=== PATIENT | female | born 1970 | race Caucasian/White ===

== ENCOUNTER → 2017-11-22 | Outpatient (CLI) | payer OTHER ==
--- NOTE | 2017-11-22 12:53 | RADIOLOGY REPORT (SQ) ---
EXAM DESCRIPTION: FOOT LEFT COMPLETE COMPLETED DATE/TIME: 11/22/2017 11:39 am REASON FOR STUDY: LEFT FOOT PAIN COMPARISON: None. NUMBER OF VIEWS: Three views of the left foot. LIMITATIONS: None. FINDINGS: There is no acute or significant bone, joint or soft tissue abnormality. OTHER: No other significant finding. IMPRESSION: NORMAL STUDY. TECHNICAL DOCUMENTATION: JOB ID: [id number] Reading location - IP/workstation name: [email or web address]
== END ==
LOC: OD 10:58
PROVIDERS: ATTEND Student in an Organized Health Care Education/Training Program
DX: M79.672 Pain in left foot (principal)

== ENCOUNTER → 2019-07-12 | Outpatient (CLI) | payer BC, OTHER ==
[2019-07-12 09:22] LABS: ABSOLUTE EOSINOPHILS # (AUTO) 0.1 10^3/uL (0.0-0.6); ABSOLUTE LYMPHOCYTES (AUTO) 1.9 10^3/uL (0.5-4.7); ABSOLUTE MONOCYTES (AUTO) 0.5 10^3/uL (0.1-1.4); ABSOLUTE NEUT (AUTO) 3.9 10^3/uL (1.7-8.2); BASOPHILS % (AUTO) 0.7 % (0-2); EOSINOPHILS % (AUTO) 1.8 % (0-6); HEMATOCRIT 41.7 % (36.0-47.0); HEMOGLOBIN 14.3 g/dL (12.0-15.5); LYMPHOCYTES % (AUTO) 29.7 % (13-45); MEAN CORPUSCULAR HEMOGLOBIN 31.3 pg (27.0-33.4); MEAN CORPUSCULAR HGB CONC 34.1 g/dL (32.0-36.0); MEAN CORPUSCULAR VOLUME 92 fl (80-97); MONOCYTES % (AUTO) 7.7 % (3-13); PLATELET COUNT 253 10^3/uL (150-450); RED BLOOD COUNT 4.55 10^6/uL (3.72-5.28); SEGMENTED NEUTROPHILS % (AUTO) 60.1 % (42-78); TOTAL CELLS COUNTED % (AUTO) 100 %; WHITE BLOOD COUNT 6.5 10^3/uL (4.0-10.5)
[2019-07-12 09:23] LABS: ALBUMIN 4.1 g/dL (3.5-5.0); ALKALINE PHOSPHATASE 47 U/L (38-126); AMYLASE 51 U/L (30-110); ANION GAP 8 (5-19); ASPARTATE AMINO TRANSFERASE 21 U/L (14-36); BILIRUBIN,TOTAL 0.2 mg/dL (0.2-1.3); BLOOD UREA NITROGEN 18 mg/dL (7-20); CALCIUM 9.2 mg/dL (8.4-10.2); CARBON DIOXIDE 30 mmol/L (22-30); CHLORIDE 101 mmol/L (98-107); CHOLESTEROL 189.66 mg/dL (0-200); GLUCOSE 91 mg/dL (75-110); POTASSIUM 4.5 mmol/L (3.6-5.0); TOTAL PROTEIN 7.4 g/dL (6.3-8.2); TRIGLYCERIDES 184 mg/dL (<150)
[2019-07-12 09:35] LABS: DIRECT LDL 128 mg/dL (<100)
[2019-07-12 09:37] LABS: VLDL CHOLESTEROL 36.8 mg/dL (10-31)
--- NOTE | 2019-07-12 12:18 | RADIOLOGY REPORT (SQ) ---
EXAM DESCRIPTION: U/S ABDOMEN LIMITED W/O DOP COMPLETED DATE/TIME: 07/12/2019 8:41 am REASON FOR STUDY: UNSPEC ABD PAIN (R10.9) R10.9 UNSPECIFIED ABDOMINAL PAIN COMPARISON: None. TECHNIQUE: Dynamic and static grayscale images acquired of the abdomen and recorded on PACS. Additio nal selected color Doppler and spectral images recorded. LIMITATIONS: None. FINDINGS: PANCREAS: No masses. Visualized pancreatic duct normal caliber. LIVER: Increased echogenicity. No masses. LIVER VASCULATURE: Normal directional flow of the main portal vein and hepatic veins. GALLBLADDER: Distended. No stones. No wall thickening or pericholecystic fluid. ULTRASOUND-DETECTED PATEL'S SIGN: Negative. INTRAHEPATIC DUCTS AND COMMON DUCT: CBD and intrahepatic ducts normal caliber. No filling defects. INFERIOR VENA CAVA: Not imaged. AORTA: No aneurysm. RIGHT KIDNEY: Normal size common 10.7 cm. Normal echogenicity. No solid or suspicious masses. No hyd ronephrosis. No calcifications. PERITONEAL AND RIGHT PLEURAL SPACE: No ascites or effusions. OTHER: No other significant findings. IMPRESSION: Hepatic steatosis. Distended gallbladder with no stones. TECHNICAL DOCUMENTATION: JOB ID: [id number] [employer] All Rights Reserved Reading location - IP/workstation name: [email or web address]
== END ==
LOC: RAD 07:45
PROVIDERS: ATTEND Family Medicine Geriatric Medicine
DX: I10 Essential (primary) hypertension (principal); R10.9 Unspecified abdominal pain; J30.9 Allergic rhinitis, unspecified; Z79.899 Other long term (current) drug therapy
CPT/HCPCS: 36415; 76705; 80053; 80061; 82150; 83690; 84443; 85025

== ENCOUNTER → 2019-08-19 | Outpatient (CLI) | payer OTHER ==
--- NOTE | 2019-08-19 16:22 | XCELERA REPORT ---
[address] [place] [facility] [place] [address] Lower Extremity Venous Evaluation Procedure: Color flow and duplex imaging of the veins of the left lower extremity as well as the right Common Femoral vein. Right Sided Venous Evaluation The right common femoral vein is fully compressible. Spontaneous and phasic flow is present in the right common femoral vein. Left Sided Venous Evaluation Normal vessel filling wall to wall, compression and augmentation as well as Colour flow down to the infrageniculate veins. Interpretation Summary No duplex evidence of DVT or obstruction in the left lower extremity nor in the right Common Femoral vein. Name: GONZALEZ IRVIN Age: 48 yrs Gender: Female : 1970 Patient Status: Outpatient Patient Location: Study Date: 08/19/2019 01:10 PM Reason For Study: LLE PAIN Ordering Physician: BRENDA DIAZ Performed By: Mitiz Jenkins : BRENDA DIAZ > Vasile Franco
== END ==
LOC: SP 12:00
PROVIDERS: ATTEND Family Medicine Geriatric Medicine
DX: M79.605 Pain in left leg (principal)
CPT/HCPCS: 93971

== ENCOUNTER 2019-12-02 11:29 | Emergency (ER) | payer OTHER ==
[2019-12-02] MEDS ORDERED: NORMAL SALINE 1000 ML 1,000 ML IV ONE (12:04)
--- NOTE | 2019-12-02 12:05 | ER Document Report ---
ED Medical Screen (RME) - General Chief Complaint: Possible Kidney Stone Stated Complaint: ABDOMINAL PAIN Time Seen by Provider: 12/02/19 12:03 Primary Care Provider: BRENDA DIAZ MD [Primary Care Provider] - Follow up as needed Mode of Arrival: Ambulatory Information source: Patient Notes: 89-year-old female presented to ED for complaint of left flank pain that started yesterday and is wrapped around to the left upper abdomen at this time. She states she has not noticed any blood in the urine. She states the abdominal pain started about 10 AM. She is alert oriented respirations regular nonlabored speaking in full sentences. She states she does not have any history of kidney stones that she knows of. She states she has had a uterine ablation. She is a former smoker does not use any alcohol or drugs. I have greeted and performed a rapid initial assessment of this patient. A comprehensive ED assessment and evaluation of the patient, analysis of test results and completion of medical decision making process will be conducted by an additional ED providers. TRAVEL OUTSIDE OF THE [place] IN LAST 30 DAYS: No - Related Data Allergies/Adverse Reactions: Penicillins Allergy (Intermediate, Verified 08/18/12 07:54) Generalized rash Past Medical History - Past Medical History Cardiac Medical History: Reports: Hx Hypercholesterolemia, Hx Hypertension Pulmonary Medical History: Reports: Hx Asthma, Hx Bronchitis - Last 10 yrs ago, Hx Sleep Apnea Denies: Hx Tuberculosis GI Medical History: Reports: Hx Gastroesophageal Reflux Disease Psychiatric Medical History: Reports: Hx Bipolar Disorder, Hx Depression Past Surgical History: Reports: Hx Section. Denies: Hx Pacemaker Physical Exam - Vital signs Vitals: Temp Pulse Resp BP Pulse Ox 99.2 F 84 19 130/68 H 99 12/02/19 11:34 12/02/19 11:34 12/02/19 11:34 12/02/19 11:34 12/02/19 11:34 Course - Vital Signs Vital signs: Temp Pulse Resp BP Pulse Ox 97.7 F 84 19 130/68 H 99 12/02/19 11:57 12/02/19 11:34 12/02/19 11:34 12/02/19 11:34 12/02/19 11:34 Doctor's Discharge - Discharge Referrals: BRENDA DIAZ MD [Primary Care Provider] - Follow up as needed
--- NOTE | 2019-12-02 12:37 | RADIOLOGY REPORT (SQ) ---
EXAM DESCRIPTION: CT ABD/PELVIS NO ORAL OR IV IMAGES COMPLETED DATE/TIME: 12/02/2019 12:18 pm REASON FOR STUDY: Left flank pain COMPARISON: Right upper quadrant ultrasound 07/12/2019 TECHNIQUE: CT scan of the abdomen and pelvis performed without intravenous or oral contrast. Images reviewed with lung, soft tissue, and bone windows. Reconstructed coronal and sagittal MPR images revi ewed. All images stored on PACS. All CT scanners at this facility use dose modulation, iterative reconstruction, and/or weight based d osing when appropriate to reduce radiation dose to as low as reasonably achievable (ALARA). [facility]: Dose Right [facility]: CareDose [facility]: Dose Right [facility]: Teradose 4D [facility]: Smart [employer] RADIATION DOSE: CT Rad equipment meets quality standard of care and radiation dose reduction techniq ues were employed. CTDIvol: 18.6 mGy. DLP: 1159 mGy-cm.mGy. LIMITATIONS: None. FINDINGS: LOWER CHEST: No significant findings. No nodules or infiltrates. NON-CONTRASTED LIVER, SPLEEN, ADRENALS: Evaluation limited by lack of IV contrast. No identified sign ificant masses. PANCREAS: No masses. No peripancreatic inflammatory changes. GALLBLADDER: No identified stones by CT criteria. No inflammatory changes to suggest cholecystitis. RIGHT KIDNEY AND URETER: No suspicious masses. Assessment limited by lack of IV contrast. No signif icant calcifications. No hydronephrosis or hydroureter. LEFT KIDNEY AND URETER: No suspicious masses. Assessment limited by lack of IV contrast. No signifi cant calcifications. No hydronephrosis or hydroureter. AORTA AND RETROPERITONEUM: No aneurysm. No retroperitoneal masses or adenopathy. BOWEL AND PERITONEAL CAVITY: No obvious masses or inflammatory changes. No free fluid. APPENDIX: Normal. PELVIS, BLADDER, AND ABDOMINAL WALL:No abnormal masses. No free fluid. Bladder normal. Normal size f emale pelvic organs BONES: No significant findings. OTHER: No other significant finding. IMPRESSION: NO SIGNIFICANT OR ACUTE PROCESS IN THE ABDOMEN OR PELVIS. COMMENT: Quality ID # [id number]: Final reports with documentation of one or more dose reduction techniques (e.g., Automated exposure control, adjustment of the mA and/or kV according to patient size, use of iterative reconstruction technique) TECHNICAL DOCUMENTATION: JOB ID: [id number] 2010 [employer]- All Rights Reserved Reading location - IP/workstation name: [email or web address]
[2019-12-02 12:46] LABS: ABSOLUTE BASOPHILS # (AUTO) 0.1 10^3/uL (0.0-0.2); ABSOLUTE EOSINOPHILS # (AUTO) 0.1 10^3/uL (0.0-0.6); ABSOLUTE LYMPHOCYTES (AUTO) 2.2 10^3/uL (0.5-4.7); ABSOLUTE MONOCYTES (AUTO) 0.6 10^3/uL (0.1-1.4); ABSOLUTE NEUT (AUTO) 4.5 10^3/uL (1.7-8.2); BASOPHILS % (AUTO) 0.8 % (0-2); EOSINOPHILS % (AUTO) 1.7 % (0-6); HEMATOCRIT 44.1 % (36.0-47.0); HEMOGLOBIN 15.1 g/dL (12.0-15.5); MEAN CORPUSCULAR HEMOGLOBIN 31.4 pg (27.0-33.4); MEAN CORPUSCULAR HGB CONC 34.2 g/dL (32.0-36.0); MEAN CORPUSCULAR VOLUME 92 fl (80-97); MONOCYTES % (AUTO) 8.3 % (3-13); PLATELET COUNT 315 10^3/uL (150-450); RED CELL DISTRIBUTION WIDTH 13.2 % (11.5-14.0); SEGMENTED NEUTROPHILS % (AUTO) 60.2 % (42-78); TOTAL CELLS COUNTED % (AUTO) 100 %; WHITE BLOOD COUNT 7.5 10^3/uL (4.0-10.5)
[2019-12-02 12:56] LABS: APPEARANCE,URINE CLEAR; BILIRUBIN,URINE NEGATIVE (NEGATIVE); COLOR,URINE YELLOW; GLUCOSE, URINE NEGATIVE (NEGATIVE); KETONES,URINE NEGATIVE (NEGATIVE); LEUKOCYTE ESTERASE,URINE TRACE (NEGATIVE); NITRITE,URINE NEGATIVE (NEGATIVE); PROTEIN,URINE NEGATIVE (NEGATIVE); URINE SPECIFIC GRAVITY 1.008; UROBILINOGEN,URINE NEGATIVE mg/dL (<2.0)
[2019-12-02 13:00] LABS: ALBUMIN 4.2 g/dL (3.5-5.0); ALKALINE PHOSPHATASE 52 U/L (38-126); ANION GAP 8 (5-19); ASPARTATE AMINO TRANSFERASE 22 U/L (14-36); BILIRUBIN,TOTAL 0.3 mg/dL (0.2-1.3); BLOOD UREA NITROGEN 14 mg/dL (7-20); CALCIUM 9.7 mg/dL (8.4-10.2); CARBON DIOXIDE 29 mmol/L (22-30); CHLORIDE 99 mmol/L (98-107); GLUCOSE 91 mg/dL (75-110); POTASSIUM 4.1 mmol/L (3.6-5.0); TOTAL PROTEIN 7.7 g/dL (6.3-8.2)
[2019-12-02 14:17] VITALS: BP 130/80
--- NOTE | 2019-12-02 19:08 | ER Document Report ---
Entered by KAMILAH MORTON SCRIBE 12/02/19 [id number] Acting as scribe for:RICARDO WILSON MD ED General - General Chief Complaint: Possible Kidney Stone Stated Complaint: ABDOMINAL PAIN Time Seen by Provider: 12/02/19 12:03 Primary Care Provider: BRENDA DIAZ MD [Primary Care Provider] - Follow up as needed Mode of Arrival: Ambulatory Information source: Patient Notes: This 49 year old female patient presents to the emergency department today with complaints of left side flank/abdominal pain for the last two days. Patient states that two days ago she she was only having back pain and she did not think much of it. Patient reports that yesterday she also began having some left sided abdominal pain too which is why she decided to come be seen. Patient reports that she went to [facility] urgent care first but states that they told her to come tot he ED. TRAVEL OUTSIDE OF THE [place] IN LAST 30 DAYS: No - Related Data Allergies/Adverse Reactions: Penicillins Allergy (Intermediate, Verified 12/02/19 12:35) Generalized rash Sulfa (Sulfonamide Antibiotics) Allergy (Intermediate, Verified 12/02/19 12:36) Generalized Itching Past Medical History - General Information source: Patient - Social History Smoking Status: Former Smoker Cigarette use (# per day): No Frequency of alcohol use: None Drug Abuse: None Lives with: Family Family History: Reviewed & Not Pertinent Patient has homicidal ideation: No - Past Medical History Cardiac Medical History: Reports: Hx Hypercholesterolemia, Hx Hypertension Pulmonary Medical History: Reports: Hx Asthma, Hx Bronchitis - Last 10 yrs ago, Hx Sleep Apnea GI Medical History: Reports: Hx Gastroesophageal Reflux Disease Psychiatric Medical History: Reports: Hx Bipolar Disorder, Hx Depression Past Surgical History: Reports: Hx Section Review of Systems - Review of Systems Constitutional: No symptoms reported EENT: No symptoms reported Cardiovascular: No symptoms reported Respiratory: No symptoms reported Gastrointestinal: See HPI, Abdominal pain Genitourinary: See HPI, Flank pain Female Genitourinary: No symptoms reported Musculoskeletal: No symptoms reported Skin: No symptoms reported Hematologic/Lymphatic: No symptoms reported Neurological/Psychological: No symptoms reported -: Yes All other systems reviewed and negative Physical Exam - Vital signs Vitals: Temp Pulse Resp BP Pulse Ox 99.2 F 84 19 130/68 H 99 12/02/19 11:34 12/02/19 11:34 12/02/19 11:34 12/02/19 11:34 12/02/19 11:34 - Notes Notes: Physical Exam: General: Alert, appears well. Complains of increased pain when laughing. HEENT: Normocephalic. Atraumatic. PERRL. Extraocular movements intact. Oropharynx clear. Neck: Supple. Non-tender. Respiratory: No respiratory distress. Clear and equal breath sounds bilaterally. Cardiovascular: Regular rate and rhythm. Abdominal: Normal Inspection. Non-tender. No distension. Normal Bowel Sounds. Back: Tenderness with palpation over the left paravetebral muscles wrapping around just inferior to the lateral rib margin. This area is more tender if the patient flexes abdominal muscles. Extremities: Moves all four extremities. Upper extremities: Normal inspection. Normal ROM. Lower extremities: Normal inspection. No edema. Normal ROM. Neurological: Normal cognition. AAOx4. Normal speech. Psychological: Normal affect. Normal Mood. Skin: Warm. Dry. Normal color. Course - Re-evaluation Re-evalutation: 12/02/19 13:40 CBC, Chem-12, urinalysis, and noncontrast CT scan abdomen pelvis are all unremarkable. - Vital Signs Vital signs: Temp Pulse Resp BP Pulse Ox 97.7 F 78 18 130/80 H 99 12/02/19 12:05 12/02/19 14:15 12/02/19 14:15 12/02/19 14:15 12/02/19 14:15 - Laboratory Result Diagrams: 12/02/19 12:29 12/02/19 12:29 Laboratory results interpreted by me: 12/02/19 12/02/19 12:14 12:29 Sodium 136.4 L Ur Leukocyte Esterase TRACE H - Diagnostic Test Radiology reviewed: Image reviewed, Reports reviewed - CT scan of the abdomen and pelvis without contrast is unremarkable. Discharge - Discharge Clinical Impression: Acute left flank pain Condition: Stable Disposition: HOME, SELF-CARE Additional Instructions: Flank Pain We weren't able to prove an exact cause for your flank pain. Pain in the flank can be caused by a muscle strain or spasm. Sometimes a kidney stone causes pain, but can't be found on our tests. Infection in the kidney should be evident on a urine test. Early shingles can occasionally cause flank pain, without the rash that proves the diagnosis. On rare occasions, disease of the pancreas, aorta, spleen, or colon can create pain in the flank. At this time, there's no evidence of a dangerous condition, and it seems safe for you to be at home. If the pain goes away and does not come back, no further testing will be needed. If pain persists, or becomes more severe, we may need to repeat some tests or order additional new testing. Blood in the urine, urgency to urinate frequently, and pain that radiates to the groin can indicate a kidney stone. Fever may mean that the pain is due to infection, either of the kidney or the colon (diverticulitis). If your pain is early shingles, you should develop an eruption of blisters in the painful area within a few days. Call the doctor or return if you have pain that is spreading or becoming more severe, pain that does not resolve with time, fever, or any other new symptoms. The CT scan of your abdomen pelvis did not show any abnormalities. The CBC did not show an elevation white blood cell count to suggest an infectious process. The serum chemistries were normal. The urinalysis did not show blood or signs of infection in the urine. Physical exam does suggest that the pain is coming from the muscles in your left flank wrapping around to the left upper quadrant of your abdomen. Take the muscle relaxer as prescribed. Take Tylenol and ibuprofen for pain as needed. Try to avoid activities that make the pain worse. Follow-up with your primary care provider if not improving. RETURN TO THE EMERGENCY ROOM IF ANY NEW OR WORSENING SYMPTOMS. Prescriptions: Cyclobenzaprine HCl 5 mg PO Q8 PRN #15 tablet PRN Reason: Forms: Return to Work Referrals: BRENDA DIAZ MD [Primary Care Provider] - Follow up as needed I personally performed the services described in the documentation, reviewed and edited the documentation which was dictated to the scribe in my presence, and it accurately records my words and actions.
== END 2019-12-02 14:17 | disposition home or self-care (01) ==
LOC: ER 11:29
DX: R10.9 Unspecified abdominal pain (principal); M54.9 Dorsalgia, unspecified; Z88.0 Allergy status to penicillin; Z88.2 Allergy status to sulfonamides; Z87.891 Personal history of nicotine dependence; I10 Essential (primary) hypertension; J45.909 Unspecified asthma, uncomplicated
CPT/HCPCS: 99284; 96360; 36415; 87086; 85025; 80053; 81001; 74176; J7030

== ENCOUNTER 2020-02-17 11:51 | Emergency (ER) | payer OTHER ==
[2020-02-17] MEDS ORDERED: ONDANSETRON HCL INJ/PF 4 MG/2 ML SDV IV ONE (12:05)
--- NOTE | 2020-02-17 12:07 | ER Document Report ---
ED Medical Screen (RME) - General Chief Complaint: Abdominal Pain Stated Complaint: ABDOMINAL PAIN Time Seen by Provider: 02/17/20 12:02 Primary Care Provider: BRENDA DIAZ MD [Primary Care Provider] - Follow up as needed Mode of Arrival: Wheelchair Information source: Patient Notes: Patient presents complaining of abdominal pain that started this morning. Patie nt states initially she had right lower quadrant pain although now the right lower quadrant pain has resolved and she complains of left upper quadrant tenderness. Patient reports diarrhea over the weekend that has since resolved. Patient reports nausea vomiting x3 episodes today. Patient denies any fever or urinary symptoms. Patient denies any vaginal bleeding or discharge. Patient has a history of hypertension. Patient states she has a history of abdominal pain in the past that she had been evaluated for and referred to a medical center representative, patient was advised that she needed a colonoscopy although she could not afford the test. I have greeted and performed a rapid initial assessment of this patient. A comprehensive ED assessment and evaluation of the patient, analysis of test re sults and completion of the medical decision making process will be conducted by additional ED providers. TRAVEL OUTSIDE OF THE [place] IN LAST 30 DAYS: No - Related Data Allergies/Adverse Reactions: Penicillins Allergy (Intermediate, Verified 12/02/19 12:35) Generalized rash Sulfa (Sulfonamide Antibiotics) Allergy (Intermediate, Verified 12/02/19 12:36) Generalized Itching Past Medical History - Social History Frequency of alcohol use: None Drug Abuse: None - Past Medical History Cardiac Medical History: Reports: Hx Hypercholesterolemia, Hx Hypertension Pulmonary Medical History: Reports: Hx Asthma, Hx Bronchitis - Last 10 yrs ago, Hx Sleep Apnea Denies: Hx Tuberculosis GI Medical History: Reports: Hx Gastroesophageal Reflux Disease Psychiatric Medical History: Reports: Hx Bipolar Disorder, Hx Depression Past Surgical History: Reports: Hx Section. Denies: Hx Pacemaker Physical Exam - Vital signs Vitals: Temp Pulse Resp BP Pulse Ox 97.4 F 68 18 114/86 H 100 02/17/20 11:55 02/17/20 11:55 02/17/20 11:55 02/17/20 11:55 02/17/20 11:55 - Abdominal Inspection: Morbidly Obese Tenderness: Tender - Left upper quadrant tenderness, exam limited by patient sitting in chair Course - Vital Signs Vital signs: Temp Pulse Resp BP Pulse Ox 97.4 F 68 18 114/86 H 100 02/17/20 11:55 02/17/20 11:55 02/17/20 11:55 02/17/20 11:55 02/17/20 11:55 Doctor's Discharge - Discharge Referrals: BRENDA DIAZ MD [Primary Care Provider] - Follow up as needed
[2020-02-17 12:31] LABS: ABSOLUTE BASOPHILS # (AUTO) 0.1 10^3/uL (0.0-0.2); ABSOLUTE EOSINOPHILS # (AUTO) 0.1 10^3/uL (0.0-0.6); ABSOLUTE LYMPHOCYTES (AUTO) 1.6 10^3/uL (0.5-4.7); ABSOLUTE MONOCYTES (AUTO) 0.6 10^3/uL (0.1-1.4); ABSOLUTE NEUT (AUTO) 10.6 10^3/uL (1.7-8.2); BASOPHILS % (AUTO) 0.5 % (0-2); HEMATOCRIT 44.6 % (36.0-47.0); HEMOGLOBIN 15.1 g/dL (12.0-15.5); LYMPHOCYTES % (AUTO) 12.3 % (13-45); MEAN CORPUSCULAR HEMOGLOBIN 30.8 pg (27.0-33.4); MEAN CORPUSCULAR HGB CONC 33.9 g/dL (32.0-36.0); MEAN CORPUSCULAR VOLUME 91 fl (80-97); MONOCYTES % (AUTO) 4.9 % (3-13); PLATELET COUNT 342 10^3/uL (150-450); RED BLOOD COUNT 4.92 10^6/uL (3.72-5.28); RED CELL DISTRIBUTION WIDTH 12.6 % (11.5-14.0); SEGMENTED NEUTROPHILS % (AUTO) 81.3 % (42-78); TOTAL CELLS COUNTED % (AUTO) 100 %
[2020-02-17 12:52] LABS: ALBUMIN 4.6 g/dL (3.5-5.0); ALKALINE PHOSPHATASE 62 U/L (38-126); ANION GAP 13 (5-19); ASPARTATE AMINO TRANSFERASE 27 U/L (14-36); BILIRUBIN,DIRECT 0.3 mg/dL (0.0-0.4); BILIRUBIN,TOTAL 0.5 mg/dL (0.2-1.3); BLOOD UREA NITROGEN 18 mg/dL (7-20); CALCIUM 9.8 mg/dL (8.4-10.2); CARBON DIOXIDE 23 mmol/L (22-30); CHLORIDE 102 mmol/L (98-107); GLUCOSE 130 mg/dL (75-110); TOTAL PROTEIN 7.8 g/dL (6.3-8.2)
[2020-02-17 14:56] LABS: APPEARANCE,URINE SLIGHTLY-CLOUDY; BILIRUBIN,URINE NEGATIVE (NEGATIVE); COLOR,URINE YELLOW; GLUCOSE, URINE NEGATIVE (NEGATIVE); KETONES,URINE TRACE mg/dL (NEGATIVE); LEUKOCYTE ESTERASE,URINE NEGATIVE (NEGATIVE); NITRITE,URINE NEGATIVE (NEGATIVE); PROTEIN,URINE NEGATIVE (NEGATIVE); URINE SPECIFIC GRAVITY 1.021; UROBILINOGEN,URINE NEGATIVE mg/dL (<2.0)
--- NOTE | 2020-02-17 16:30 | RADIOLOGY REPORT (SQ) ---
EXAM DESCRIPTION: CT ABD/PELVIS NO ORAL OR IV IMAGES COMPLETED DATE/TIME: 02/17/2020 4:14 pm REASON FOR STUDY: rlq pain COMPARISON: 12/02/2019 TECHNIQUE: CT scan of the abdomen and pelvis performed without intravenous or oral contrast. Images reviewed with lung, soft tissue, and bone windows. Reconstructed coronal and sagittal MPR images revi ewed. All images stored on PACS. All CT scanners at this facility use dose modulation, iterative reconstruction, and/or weight based d osing when appropriate to reduce radiation dose to as low as reasonably achievable (ALARA). [facility]: Dose Right [facility]: CareDose [facility]: Dose Right [facility]: Teradose 4D [facility]: [employer] RADIATION DOSE: CT Rad equipment meets quality standard of care and radiation dose reduction techniq ues were employed. CTDIvol: 18.8 mGy. DLP: 1108 mGy-cm.mGy. LIMITATIONS: None. FINDINGS: LOWER CHEST: No significant findings. No nodules or infiltrates. NON-CONTRASTED LIVER, SPLEEN, ADRENALS: Evaluation limited by lack of IV contrast. No identified sign ificant masses. PANCREAS: No masses. No peripancreatic inflammatory changes. GALLBLADDER: No identified stones by CT criteria. No inflammatory changes to suggest cholecystitis. RIGHT KIDNEY AND URETER: No suspicious masses. Assessment limited by lack of IV contrast. No signif icant calcifications. No hydronephrosis or hydroureter. LEFT KIDNEY AND URETER: No suspicious masses. Assessment limited by lack of IV contrast. No signifi cant calcifications. No hydronephrosis or hydroureter. AORTA AND RETROPERITONEUM: No aneurysm. No retroperitoneal masses or adenopathy. BOWEL AND PERITONEAL CAVITY: No obvious masses or inflammatory changes. No free fluid. APPENDIX: NORMAL. MIDLINE. PELVIS, BLADDER, AND ABDOMINAL WALL:Decompressed urinary bladder. Left ovarian cyst. No free fluid or adenopathy. Possible uterine leiomyoma. BONES: No acute bony abnormality. No discrete lytic or blastic osseous lesions. Lower lumbar facet arthropathy. OTHER: Obesity. IMPRESSION: No evidence of acute intra-abdominal/pelvic process. Normal appendix. COMMENT: Quality ID # [id number]: Final reports with documentation of one or more dose reduction techniques (e.g., Automated exposure control, adjustment of the mA and/or kV according to patient size, use of iterative reconstruction technique) TECHNICAL DOCUMENTATION: JOB ID: [id number] 2010 [employer]- All Rights Reserved Reading location - IP/workstation name: [email or web address]
--- NOTE | 2020-02-17 17:05 | ER Document Report ---
ED General - General Chief Complaint: Abdominal Pain Stated Complaint: ABDOMINAL PAIN Time Seen by Provider: 02/17/20 12:02 Primary Care Provider: BRENDA DIAZ MD [Primary Care Provider] - Follow up as needed Mode of Arrival: Wheelchair TRAVEL OUTSIDE OF THE [place] IN LAST 30 DAYS: No - HPI Notes: Patient presents with abdominal pain. Is mainly in the right lower quadrant. It is been present for 2 to 3 days. Is intermittent. Nothing makes it better or worse. Does occasionally radiate to the right low back. No problems with urination. No vaginal symptoms. She was been here with similar problems approximate 1 week ago with an unremarkable work-up. She is also had decreased appetite. No problems with stool. She states she had normal bowel movement today without change of the symptoms. No significant previous abdominal surgeries such as hernia repair, gallbladder or appendix. - Related Data Allergies/Adverse Reactions: Penicillins Allergy (Intermediate, Verified 12/02/19 12:35) Generalized rash Sulfa (Sulfonamide Antibiotics) Allergy (Intermediate, Verified 12/02/19 12:36) Generalized Itching Past Medical History - General Information source: Patient - Social History Smoking Status: Never Smoker Frequency of alcohol use: None Drug Abuse: None Family History: Reviewed & Not Pertinent - Past Medical History Cardiac Medical History: Reports: Hx Hypercholesterolemia, Hx Hypertension Pulmonary Medical History: Reports: Hx Asthma, Hx Bronchitis - Last 10 yrs ago, Hx Sleep Apnea Denies: Hx Tuberculosis GI Medical History: Reports: Hx Gastroesophageal Reflux Disease Psychiatric Medical History: Reports: Hx Bipolar Disorder, Hx Depression Past Surgical History: Reports: Hx Section. Denies: Hx Pacemaker Review of Systems - Review of Systems Constitutional: denies: Chills, Fever Cardiovascular: denies: Chest pain, Palpitations Respiratory: denies: Cough, Short of breath -: Yes All other systems reviewed and negative Physical Exam - Vital signs Vitals: Temp Pulse Resp BP Pulse Ox 97.4 F 68 18 114/86 H 100 02/17/20 11:55 02/17/20 11:55 02/17/20 11:55 02/17/20 11:55 02/17/20 11:55 Interpretation: Normal - General General appearance: Appears well, Alert - HEENT Head: Normocephalic, Atraumatic Eyes: Normal Pupils: PERRL - Respiratory Respiratory status: No respiratory distress Chest status: Nontender Breath sounds: Normal Chest palpation: Normal - Cardiovascular Rhythm: Regular Heart sounds: Normal auscultation Murmur: No - Abdominal Inspection: Normal Distension: No distension Bowel sounds: Normal Tenderness: Tender - Patient has some minimal right lower quadrant tenderness to palpation. No rebound or guarding. Organomegaly: No organomegaly - Back Back: Normal, Nontender - Extremities General upper extremity: Normal inspection, Nontender, Normal color, Normal ROM, Normal temperature General lower extremity: Normal inspection, Nontender, Normal color, Normal ROM, Normal temperature, Normal weight bearing. No: Alejandra's sign - Neurological Neuro grossly intact: Yes Cognition: Normal Orientation: AAOx4 [place] Coma Scale Eye Opening: Spontaneous [place] Coma Scale Verbal: Oriented [place] Coma Scale Motor: Obeys Commands [place] Coma Scale Total: 15 Speech: Normal Motor strength normal: LUE, RUE, LLE, RLE Sensory: Normal - Psychological Associated symptoms: Normal affect, Normal mood - Skin Skin Temperature: Warm Skin Moisture: Dry Skin Color: Normal Course - Re-evaluation Re-evalutation: 02/17/20 17:02 Patient presents with right lower quadrant abdominal pain. No evidence of appendicitis. No evidence for ovarian pathology. Do not see any evidence for ureteral stone or urinary tract pathology. Am unsure the exact nature of the pain. She does have an increased white blood cell count compared to her last visit however CT remains unremarkable showing no acute pathology within the abdomen. Her exam is nonsurgical. At this time I think the best course of treatment is to discharge the patient home with pain medication and have her follow-up with gynecology. - Vital Signs Vital signs: Temp Pulse Resp BP Pulse Ox 97.4 F 68 18 114/86 H 100 02/17/20 11:55 02/17/20 11:55 02/17/20 11:55 02/17/20 11:55 02/17/20 11:55 - Laboratory Result Diagrams: 02/17/20 12:18 02/17/20 12:18 Laboratory results interpreted by me: 02/17/20 02/17/20 02/17/20 12:18 12:18 14:40 WBC 13.0 H Lymph % (Auto) 12.3 L Absolute Neuts (auto) 10.6 H Seg Neutrophils % 81.3 H Glucose 130 H Urine Ketones TRACE H Urine Ascorbic Acid 40 H - Diagnostic Test Radiology reviewed: Image reviewed, Reports reviewed Discharge - Discharge Clinical Impression: Right lower quadrant abdominal pain Condition: Stable Disposition: HOME, SELF-CARE Instructions: Abdominal Pain ([facility]), Oral Narcotic Medication ([facility]) Additional Instructions: Please call your ELECTRONIC [employer]DS TRANSFER COORDINATOR as soon as possible to arrange follow up Prescriptions: Hydrocodone/Acetaminophen [Meno 5-325 mg Tablet] 1 tab PO Q6 PRN 3 Days #12 tablet PRN Reason: Forms: Return to Work Referrals: BRENDA DIAZ MD [Primary Care Provider] - Follow up as needed ANÍBAL WIN MD [ACTIVE STAFF] - Follow up in 3-5 days
[2020-02-17 17:29] VITALS: BP 140/96
== END 2020-02-17 17:19 | disposition home or self-care (01) ==
LOC: ER 11:51
DX: R10.31 Right lower quadrant pain (principal); R10.813 Right lower quadrant abdominal tenderness; R63.0 Anorexia; D72.829 Elevated white blood cell count, unspecified; I10 Essential (primary) hypertension; J45.909 Unspecified asthma, uncomplicated; Z88.0 Allergy status to penicillin; Z88.2 Allergy status to sulfonamides; Z87.19 Personal history of other diseases of the digestive system
CPT/HCPCS: 36415; 74176; 80053; 81001; 83690; 84703; 85025; 99284

== ENCOUNTER → 2020-03-04 | Outpatient (CLI) | payer OTHER ==
[2020-03-04 14:58] VITALS: BP 107/68
--- NOTE | 2020-03-04 14:58 | ER RDC ASSESSMENT REPORT ---
Intake - In the Last 14 days Have you traveled outside [place]?: No Have you been in close contact with someone CONFIRMED: Yes Worked in Healthcare?: No - Symptoms Subjective Fever([place] feverish): No Chills: No Muscule Aches: No Runny Nose: Yes Sore Throat: No Cough (New or worsening chronic cough): No Shortness of breath: No Nausea or Vomiting: No Headache: No Abdominal Pain: No Diarrhea(3 or more loose stools in last 24 hours): No - Do you have any of the following Chronic lung disease: Asthma or emphysema or COPD: Yes Cystic Fibrosis: No Diabetes: No High Blood Pressure: Yes Cardiovascular Disease: Yes Chronic Kidney Disease: No Chronic Liver Disease: No Chronic blood disorder like Sickle Cell Disease: No Weak immune system due to disease or medication: No Neurologic condition that limits movement: No Developmental delay - Moderate to Severe: No Recent (within past 2 weeks) or current : No Morbid Obesity (>100 pounds over ideal weight): No - Objective Temperature: 98.7 F Pulse Rate: 84 Respiratory Rate: 18 Blood Pressure: 107/68 O2 Sat by Pulse Oximetry: 97 Objective: Given above, testing performed: covid Disposition: Home; Selfcare General - General Stated Complaint: rhinorrhea, covid screen Time Seen by Provider: 03/04/20 14:15 Mode of Arrival: Ambulatory Information source: Patient - HPI Notes: Patient presents to clinic for COVID-19 testing after coming in close contact with another COVID 19 positive individual. Patient's only symptom is runny nose. They deny any cough, shortness of breath, fever, chills, muscle aches, sore throat, nausea or vomiting, headache, abdominal pain or diarrhea. Patient has no acute medical concerns. - Related Data Allergies/Adverse Reactions: Penicillins Allergy (Intermediate, Verified 12/02/19 12:35) Generalized rash Sulfa (Sulfonamide Antibiotics) Allergy (Intermediate, Verified 12/02/19 12:36) Generalized Itching Past Medical History - General Information source: Patient - Social History Smoking Status: Former Smoker Family History: Reviewed & Not Pertinent - Past Medical History Cardiac Medical History: Reports: Hx Hypercholesterolemia, Hx Hypertension Pulmonary Medical History: Reports: Hx Asthma, Hx Bronchitis - Last 10 yrs ago, Hx Sleep Apnea Denies: Hx Tuberculosis EENT Medical History: Reports: None Neurological Medical History: Reports: None Endocrine Medical History: Reports: None Renal/ Medical History: Reports: None Malignancy Medical History: Reports: None GI Medical History: Reports: Hx Gastroesophageal Reflux Disease Musculoskeletal Medical History: Reports None Skin Medical History: Reports None Psychiatric Medical History: Reports: Hx Bipolar Disorder, Hx Depression Traumatic Medical History: Reports: None Infectious Medical History: Reports: None Past Surgical History: Reports: Hx Section. Denies: Hx Pacemaker Physical Exam - General General appearance: Appears well, Alert In distress: None Notes: PHYSICAL EXAMINATION: GENERAL: Well-appearing and in no acute distress. HEAD: Atraumatic, normocephalic. EYES: sclera anicteric, conjunctiva are normal. ENT: nares patent. Moist mucous membranes. NECK: Normal range of motion, supple without lymphadenopathy. LUNGS: No increased work of breathing. Lung sounds CTAB and equal. No wheezes rales or rhonchi. HEART: Regular rate and rhythm without murmurs. ABDOMEN: Soft, nontender, normal bowel sounds, no guarding. EXTREMITIES: Normal range of motion, no pitting edema. No cyanosis. NEUROLOGICAL: A&O x 3. Normal speech. PSYCH: Normal mood, normal affect. SKIN: Warm, Dry, normal turgor, no rashes or lesions noted Patient Education/Counseling Counseling/Education: Patient presents with symptoms associated with possible Covid 19 infection. Patient does not have emergency worrying symptoms such as difficulty breathing, shortness of breath, chest pain, pressure, confusion or cyanosis. Patient appears suitable for discharge as vital signs are stable and patient is nontoxic in appearance. Good return precautions have been discussed with patient, patient verbalized understanding and is agreeable with discharge plan of care at this time. Guidance for worsening S/SX: As a person under investigation for Covid 19, the [place] department of Health and Human Services, division of public health advises you to adhere to the following guidance until your test results are reported to you. If your test result is positive, you will receive additional information from your provider and your local health department at that time. Remain at home until you are cleared by the health provider or public health authorities. Keep a log of visitors to your home, notify any visitors to your home of your isolation status. If you plan to move to a new address or leave the county, notify the local health department in your County. Call your doctor or seek care if you have an urgent medical need. Before seeking medical care, call ahead to get instructions from the provider before arriving at the medical office clinic or hospital. Notify them that you are being tested for the virus that causes Covid 19 so that arrangements can be made, as necessary, to prevent transmission to others in the healthcare setting. Next, notify the local health department in your county. If a medical emergency arises and you need to call 911, inform the first responders that you are being tested for the virus that causes Covid 19. Next, notify the local health department in your county. RDC Discharge - Discharge Clinical Impression: Encounter for screening laboratory testing for COVID-19 virus Condition: Good Disposition: Home; Selfcare
== END ==
LOC: RDC 13:46
PROVIDERS: ATTEND Registered Nurse
DX: Z20.828 Contact with and (suspected) exposure to other viral communicable diseases (principal); J34.89 Other specified disorders of nose and nasal sinuses; I10 Essential (primary) hypertension; E78.00 Pure hypercholesterolemia, unspecified; K21.9 Gastro-esophageal reflux disease without esophagitis; J45.909 Unspecified asthma, uncomplicated; F31.9 Bipolar disorder, unspecified; G47.30 Sleep apnea, unspecified; Z87.891 Personal history of nicotine dependence; Z88.0 Allergy status to penicillin; Z88.1 Allergy status to other antibiotic agents
CPT/HCPCS: 87635; C9803; 99201; 99211